=== PATIENT | female | born 1980 | race Two or more races ===

== ENCOUNTER 2020-08-03 09:10 | Day surgery (SDC) | payer OTHER ==
[~2020-08-03 09:10] MED LIST: SYNTHROID75 MCG PO
== END 2020-08-03 19:35 | disposition home or self-care (01) ==
LOC: CIR.AMB 09:10
PROVIDERS: ATTEND Colon & Rectal Surgery
DX: K62.0 Anal polyp (principal); K60.5 Anorectal fistula; Z20.822 Contact with and (suspected) exposure to COVID-19

== ENCOUNTER 2020-12-07 07:36 | Day surgery (SDC) | payer OTHER | END 2020-12-07 19:25 | disposition home or self-care (01) | LOC: CIR.AMB 07:36 | PROVIDERS: ATTEND Colon & Rectal Surgery | DX: K60.5 Anorectal fistula (principal); Z20.822 Contact with and (suspected) exposure to COVID-19 ==